=== PATIENT | female | born 1985 | race Caucasian/White ===

== ENCOUNTER → 2018-12-08 | Outpatient (CLI) | payer BC ==
[~2018-12-08] MED LIST: MOTRIN 800800 MG/TAB PO; PERCOCET 325 MG1 TA2 PO
[2018-12-08 12:23] LABS: HEMOGLOBIN 13.4 g/dl (12.5-16.0); MEAN CELL VOLUME 87 fl (80.0-100.0); MEAN CORPUSCULAR HEMOGLOBIN 28 pg (27.0-31.0); MEAN CORPUSCULAR HGB CONC 32 g/dl (33.0-37.0); PLATELET COUNT 347 K/mm3 (130-400); RED BLOOD COUNT 4.85 M/mm3 (4.10-5.30); REDCELL DISTRIBUTION WIDTH-CV 12.6 % (11.5-14.5)
[2018-12-08 12:33] LABS: ALBUMIN 4.4 gm/dL (3.5-5.0); BILIRUBIN,TOTAL 0.6 mg/dL (0.0-1.0); CALCIUM 9.4 mg/dL (8.4-10.2); CREATININE, serum 0.67 (0.52-1.25); POTASSIUM 3.9 mmol/L (3.4-5.0); TOTAL PROTEIN 8.5 gm/dL (6.4-8.2)
[2018-12-08 13:03] LABS: THYROID STIMULATING HORMONE 0.109 uIU/mL (0.465-4.680)
[2018-12-09 09:09] LABS: EBV NUCLEAR ANTIGEN IGG Positive (())
[2018-12-09 09:10] LABS: EBV IGM AB Negative (())
[2018-12-09 09:38] LABS: EBV EARLY ANTIGEN IGG Positive (())
== END ==
LOC: COL.LAB 11:50
DX: Z01.89 Encounter for other specified special examinations (principal)

== ENCOUNTER → 2019-01-30 | Outpatient (CLI) | payer BC ==
[2019-01-30 18:03] LABS: HEMOGLOBIN 13.1 g/dl (12.5-16.0); MEAN CELL VOLUME 87 fl (80.0-100.0); MEAN CORPUSCULAR HEMOGLOBIN 28 pg (27.0-31.0); MEAN CORPUSCULAR HGB CONC 32 g/dl (33.0-37.0); MEAN PLATELET VOLUME 10.3 fl (7.4-10.4); PLATELET COUNT 318 K/mm3 (130-400); RED BLOOD COUNT 4.74 M/mm3 (4.10-5.30); REDCELL DISTRIBUTION WIDTH-CV 13.1 % (11.5-14.5)
[2019-01-30 18:16] LABS: ALBUMIN 4.5 gm/dL (3.5-5.0); CALCIUM 9.6 mg/dL (8.4-10.2); CREATININE, serum 0.65 (0.52-1.25); POTASSIUM 3.7 mmol/L (3.4-5.0); TOTAL PROTEIN 8.5 gm/dL (6.4-8.2)
[2019-01-30 18:30] LABS: MONOSCREEN NEGATIVE
[2019-01-30 18:45] LABS: THYROID STIMULATING HORMONE 0.452 uIU/mL (0.465-4.680)
[2019-01-31 17:04] LABS: PROGESTERONE 0.1 ng/mL (())
== END ==
LOC: COL.LAB 16:35
PROVIDERS: Acupuncturist
DX: Z01.89 Encounter for other specified special examinations (principal)